=== PATIENT | male | born 1970 | race African-American/Black ===

== ENCOUNTER 2022-02-17 18:17 | Inpatient (IN) | payer BC ==
[2022-02-17] MEDS ORDERED: ONDANSETRON 4 MG TABLET PO ONE (19:10)
[2022-02-17] MEDS ORDERED: ACETAMINOPHEN 1000 MG/100 ML BAG IVPB ONE (19:15)
[2022-02-17] MEDS ORDERED: ONDANSETRON 4 MG/2 ML VIAL IVPB ONE (19:16)
[2022-02-17] MEDS ORDERED: ACETAMINOPHEN INJECTION 100 ML IVPB ONE (19:19)
[2022-02-17] MEDS ORDERED: ONDANSETRON 4 MG/2 ML VIAL ONE (19:19)
[2022-02-17] MEDS ORDERED: ONDANSETRON 4 MG/2 ML VIAL IVPUSH ONE (19:19)
[2022-02-17 20:59] LABS: HEMATOCRIT 39.1 % (35.4-49); HEMOGLOBIN 13.2 GM/dL (11.7-16.9); MCH 30.9 pg (25.7-33.7); MCHC 33.8 g/dl (32.0-35.9); MEAN CELL VOLUME 91.4 fl (80-96); MEAN PLT VOLUME 9.3 fl (7.5-11.1); PLATELET COUNT 287 10^3/uL (134-434); RBC 4.28 M/mm3 (4.00-5.60); RDW 14.8 % (11.9-15.9); WHITE BLOOD COUNT 5.6 K/mm3 (4.0-10.0)
[2022-02-17 21:18] LABS: CALCIUM 9.5 mg/dL (8.5-10.1)
[2022-02-17 21:19] LABS: BLOOD UREA NITROGEN 39.5 mg/dL (7-18)
[2022-02-17 21:21] LABS: CREATININE 1.8 mg/dL (0.55-1.3)
[2022-02-17 21:23] LABS: BILIRUBIN,TOTAL 2.8 mg/dL (0.2-1); TOT PROT 9.1 g/dl (6.4-8.2)
[2022-02-17] MEDS ORDERED: SODIUM CHLORIDE 0.9% 500 ML INFUS.BAG IV ONE (21:23)
[2022-02-18] MEDS ORDERED: PANTOPRAZOLE SODIUM 40 MG VIAL IVPUSH ONE (02:15)
[2022-02-18] MEDS ORDERED: FOLIC ACID 1 MG TABLET (FP) PO ONE (02:16)
[2022-02-18] MEDS ORDERED: PANTOPRAZOLE SODIUM 40 MG/100 ML BAG IVPB ONE (02:23)
[2022-02-18 02:42] LABS: INR 1.96 (0.83-1.09); PROTHROMBIN TIME (PATIENT) 22.7 SEC (9.7-13.0)
[2022-02-18 02:45] LABS: ACTIVATED PTT 32.1 SECONDS (25.2-36.5)
[2022-02-18 03:38] LABS: BILIRUBIN,DIRECT 1.2 mg/dL (0.0-0.2)
[2022-02-18 03:40] LABS: BILIRUBIN,TOTAL 2.1 mg/dL (0.2-1)
[2022-02-18 04:32] VITALS: BMI 19.5
[2022-02-18] MEDS: LORazepam 2 MG/ML SDV VIAL IVPUSH SCH ×4 (05:30→23:52)
[2022-02-18 11:28] LABS: ARTERIAL BLD GAS O2 SATURATION 95.6 % (95-98); ARTERIAL BLOOD GAS BASE EXCESS -5.4 mmol/L (-2-2); ARTERIAL BLOOD GAS PO2 72.2 mmHg (80-100); ARTERIAL BLOOD GAS pH 7.463 (7.350-7.450)
[2022-02-18 11:30] LABS: ALLENS TEST POSITIVE
[2022-02-18] MEDS: ENOXAPARIN NA (PORCINE) 40 MG/0.4 ML DISP.SYRIN SQ SCH (11:37)
[2022-02-18] MEDS: THIAMINE HCL 200 MG/2 ML VIAL IVPB SCH (11:37)
[2022-02-18] MEDS: DEXTROSE 5%-NORMAL SALINE 1,000 ML IV SCH ×2 (11:51→23:50)
[2022-02-18] MEDS ORDERED: PHYTONADIONE 10 MG/1 ML AMP IVPB ONE (15:01)
[2022-02-18] MEDS ORDERED: LORazepam 1 MG TABLET PO PRN (23:25)
[2022-02-19 01:59] LABS: PH,URINE 5.5 (5.0-8.0); URINE APPEARANCE CLEAR; URINE BILIRUBIN NEGATIVE (NEGATIVE); URINE COLOR DK YELLOW; URINE GLUCOSE (UA) NEGATIVE (NEGATIVE); URINE KETONE NEGATIVE (NEGATIVE); URINE LEUK ESTERASE NEGATIVE (NEGATIVE); URINE NITRITE NEGATIVE (NEGATIVE); URINE PROTEIN TRACE (NEGATIVE)
[2022-02-19] MEDS ORDERED: LORazepam 2 MG/ML SDV VIAL IVPUSH SCH (04:00)
[2022-02-19] MEDS: LORazepam 1 MG TABLET PO SCH ×4 (06:01→22:27)
[2022-02-19 09:26] LABS: BASO % 0.6 % (0-2.0); EOS % 0.2 % (0-4.5); HEMOGLOBIN 11.6 GM/dL (11.7-16.9); LYMPH % 25.4 % (8-40); MCH 30.1 pg (25.7-33.7); MCHC 33.1 g/dl (32.0-35.9); MEAN CELL VOLUME 90.9 fl (80-96); MEAN PLT VOLUME 9.1 fl (7.5-11.1); MONO % 13.2 % (3.8-10.2); NEUT % 60.6 % (42.8-82.8); PLATELET COUNT 250 10^3/uL (134-434); RBC 3.85 M/mm3 (4.00-5.60); RDW 15.2 % (11.9-15.9)
[2022-02-19 09:33] LABS: INR 2.25 (0.83-1.09); PROTHROMBIN TIME (PATIENT) 26.1 SEC (9.7-13.0)
[2022-02-19 09:49] LABS: BLOOD UREA NITROGEN 32.1 mg/dL (7-18)
[2022-02-19 09:53] LABS: CREATININE 1.4 mg/dL (0.55-1.3)
[2022-02-19 09:54] LABS: BILIRUBIN,TOTAL 1.7 mg/dL (0.2-1)
[2022-02-19 10:04] LABS: ALBUMIN 2.8 g/dl (3.4-5.0); TOT PROT 6.8 g/dl (6.4-8.2)
[2022-02-19] MEDS: ENOXAPARIN NA (PORCINE) 40 MG/0.4 ML DISP.SYRIN SQ SCH (10:45)
[2022-02-19] MEDS: THIAMINE HCL 200 MG/2 ML VIAL IVPB SCH (10:46)
[2022-02-19] MEDS: PANTOPRAZOLE SODIUM 40 MG VIAL IVPUSH SCH (10:54)
[2022-02-19] MEDS: LACTULOSE 20 GM/30 ML UDC (FOR ORAL USE ONLY) PO SCH ×4 (13:17→22:27)
[2022-02-19 13:24] LABS: CHLORIDE 105 mmol/L (98-107); SODIUM 136 mmol/L (136-145)
[2022-02-19 13:26] LABS: CALCIUM 8.4 mg/dL (8.5-10.1)
[2022-02-19 13:27] LABS: ALBUMIN 3.2 g/dl (3.4-5.0); ANION GAP 15 MMOL/L (8-16); BLOOD UREA NITROGEN 40.4 mg/dL (7-18); CO2 16 mmol/L (21-32); GLUCOSE,RANDOM 83 mg/dL (74-106)
[2022-02-19 13:30] LABS: CREATININE 1.7 mg/dL (0.55-1.3); SGOT/AST 108 U/L (15-37); SGPT/ALT 80 U/L (13-61)
[2022-02-19 13:32] LABS: TOT PROT 7.5 g/dl (6.4-8.2)
[2022-02-19 13:51] LABS: ALK PHOS 375 U/L (45-117)
[2022-02-19] MEDS: DEXTROSE 5%-NORMAL SALINE 1,000 ML IV SCH (18:08)
[2022-02-20] MEDS ORDERED: LORazepam 0.5 MG TABLET PO PRN
[2022-02-20] MEDS ORDERED: LORazepam 2 MG/ML SDV VIAL IVPUSH SCH (04:00)
[2022-02-20] MEDS: LORazepam 0.5 MG TABLET PO SCH ×5 (05:31→23:33)
[2022-02-20] MEDS: LACTULOSE 20 GM/30 ML UDC (FOR ORAL USE ONLY) PO SCH ×3 (05:36→21:48)
[2022-02-20] MEDS: PANTOPRAZOLE SODIUM 40 MG VIAL IVPUSH SCH (09:21)
[2022-02-20] MEDS: THIAMINE HCL 200 MG/2 ML VIAL IVPB SCH (09:21)
[2022-02-20] MEDS: ENOXAPARIN NA (PORCINE) 40 MG/0.4 ML DISP.SYRIN SQ SCH (10:29)
[2022-02-20] MEDS ORDERED: PHYTONADIONE 10 MG/1 ML AMP IVPB ONE (11:09)
[2022-02-20 16:26] LABS: INR 1.67 (0.83-1.09); PROTHROMBIN TIME (PATIENT) 19.3 SEC (9.7-13.0)
[2022-02-20 16:27] LABS: BASO % 0.4 % (0-2.0); EOS % 0.9 % (0-4.5); HEMATOCRIT 35.5 % (35.4-49); HEMOGLOBIN 11.8 GM/dL (11.7-16.9); LYMPH % 16.8 % (8-40); MCH 30.5 pg (25.7-33.7); MCHC 33.2 g/dl (32.0-35.9); MEAN CELL VOLUME 91.8 fl (80-96); MONO % 12.5 % (3.8-10.2); NEUT % 69.4 % (42.8-82.8); PLATELET COUNT 248 10^3/uL (134-434); RBC 3.86 M/mm3 (4.00-5.60); RDW 15.7 % (11.9-15.9); WHITE BLOOD COUNT 6.3 K/mm3 (4.0-10.0)
[2022-02-20 16:50] LABS: ALBUMIN 2.8 g/dl (3.4-5.0); CALCIUM 7.9 mg/dL (8.5-10.1)
[2022-02-20 16:51] LABS: BLOOD UREA NITROGEN 19.1 mg/dL (7-18)
[2022-02-20 16:53] LABS: BILIRUBIN,DIRECT 0.9 mg/dL (0.0-0.2)
[2022-02-20 16:55] LABS: BILIRUBIN,TOTAL 1.3 mg/dL (0.2-1); TOT PROT 7.1 g/dl (6.4-8.2)
[2022-02-20 21:06] LABS: GLIADIN ANTIBODY IGA 7 units (0-19); GLIADIN ANTIBODY IGG 3 units (0-19); TRANSGLUTAMINASE IGG 7 U/mL (0-5)
[2022-02-21] MEDS ORDERED: LORazepam 0.5 MG TABLET PO ONE (05:00)
[2022-02-21] MEDS: LACTULOSE 20 GM/30 ML UDC (FOR ORAL USE ONLY) PO SCH ×3 (06:23→21:39)
[2022-02-21 07:28] LABS: OPIATES, URI NEGATIVE (NEGATIVE)
[2022-02-21 07:29] LABS: METHADONE, UR NEGATIVE (NEGATIVE); PHENCYCLIDINE,URINE NEGATIVE (NEGATIVE); URINE AMPHETAMINES NEGATIVE (NEGATIVE); URINE BARBITURATES NEGATIVE (NEGATIVE); URINE BENZODIAZEPINES NEGATIVE (NEGATIVE)
[2022-02-21 07:30] LABS: COCAINE, UR POSITIVE (NEGATIVE)
[2022-02-21 09:32] LABS: BLOOD UREA NITROGEN 17.1 mg/dL (7-18)
[2022-02-21 09:33] LABS: CALCIUM 8.3 mg/dL (8.5-10.1)
[2022-02-21 09:35] LABS: CREATININE 1.1 mg/dL (0.55-1.3)
[2022-02-21] MEDS: PANTOPRAZOLE SODIUM 40 MG VIAL IVPUSH SCH (10:23)
[2022-02-21 10:31] LABS: BASO % 0.7 % (0-2.0); EOS % 1.4 % (0-4.5); HEMATOCRIT 37.5 % (35.4-49); HEMOGLOBIN 12.4 GM/dL (11.7-16.9); LYMPH % 21.5 % (8-40); MCH 30.4 pg (25.7-33.7); MEAN CELL VOLUME 92.2 fl (80-96); MEAN PLT VOLUME 8.8 fl (7.5-11.1); MONO % 10.5 % (3.8-10.2); NEUT % 65.9 % (42.8-82.8); PLATELET COUNT 266 10^3/uL (134-434); RBC 4.07 M/mm3 (4.00-5.60); RDW 15.9 % (11.9-15.9); WHITE BLOOD COUNT 7.3 K/mm3 (4.0-10.0)
[2022-02-21 10:50] LABS: BILIRUBIN,DIRECT 0.9 mg/dL (0.0-0.2)
[2022-02-21 10:51] LABS: TOT PROT 7.9 g/dl (6.4-8.2)
[2022-02-21 10:53] LABS: BILIRUBIN,TOTAL 1.2 mg/dL (0.2-1)
[2022-02-21 15:15] LABS: INR 1.39 (0.83-1.09)
[2022-02-21 17:18] LABS: BF WBC & OTHER NUCLEATED CELLS 306 /mm3
[2022-02-21 18:25] LABS: BODY FLUID MESOTHELIAL 80 %
[2022-02-21 18:26] LABS: BODY FLUID MONOCYTE 10 %
[2022-02-21] MEDS: MELATONIN 5 MG TABLETS PO PRN (21:39)
[2022-02-22] MEDS: LACTULOSE 20 GM/30 ML UDC (FOR ORAL USE ONLY) PO SCH ×2 (05:54→21:27)
[2022-02-22 08:42] LABS: BASO % 1.8 % (0-2.0); EOS % 0.7 % (0-4.5); HEMATOCRIT 38.5 % (35.4-49); HEMOGLOBIN 12.6 GM/dL (11.7-16.9); LYMPH % 24.1 % (8-40); MCH 30.2 pg (25.7-33.7); MCHC 32.6 g/dl (32.0-35.9); MEAN CELL VOLUME 92.5 fl (80-96); MEAN PLT VOLUME 9.1 fl (7.5-11.1); MONO % 10.3 % (3.8-10.2); NEUT % 63.1 % (42.8-82.8); PLATELET COUNT 240 10^3/uL (134-434); RBC 4.16 M/mm3 (4.00-5.60); RDW 15.6 % (11.9-15.9); WHITE BLOOD COUNT 7.9 K/mm3 (4.0-10.0)
[2022-02-22] MEDS: SPIRONOLACTONE 25 MG TABLET PO SCH (09:26)
[2022-02-22 09:27] LABS: ALBUMIN 2.9 g/dl (3.4-5.0); CALCIUM 8.6 mg/dL (8.5-10.1)
[2022-02-22] MEDS: ASPIRIN 81 MG CHEWABLE TABLETS PO SCH (09:27)
[2022-02-22] MEDS: ISOSORBIDE MONONITRATE 30 MG TAB.SR.24H (FP) PO SCH (09:27)
[2022-02-22] MEDS: FUROSEMIDE 40 MG TABLET (FP) PO SCH (09:27)
[2022-02-22] MEDS: SACUBITRIL/VALSARTAN 24 MG-26 MG TABLET PO SCH ×2 (09:27→21:27)
[2022-02-22] MEDS: PANTOPRAZOLE SODIUM 40 MG VIAL IVPUSH SCH ×2 (09:27→10:56)
[2022-02-22] MEDS: FERROUS SO4 325 MG TABLET (FP) PO SCH (09:27)
[2022-02-22 09:28] LABS: MAGNESIUM 2.1 mg/dL (1.8-2.4)
[2022-02-22 09:30] LABS: CREATININE 1.1 mg/dL (0.55-1.3); PHOSPHOROUS 3.4 mg/dL (2.5-4.9)
[2022-02-22 09:31] LABS: BILIRUBIN,TOTAL 1.6 mg/dL (0.2-1); TOT PROT 7.2 g/dl (6.4-8.2)
[2022-02-22] MEDS ORDERED: CARVEDILOL 3.125 MG TABLET (FP) PO SCH (10:00)
[2022-02-22] MEDS: PANTOPRAZOLE 40 MG TABLET PO SCH (12:01)
[2022-02-22] MEDS ORDERED: guaiFENesin 200 MG/10 ML 10 ML UNIT-DOSE CUPS PO ONE ×2 (13:32→23:52)
[2022-02-22] MEDS: ATORVASTATIN CA 40 MG TABLET (FP) PO SCH (21:27)
[2022-02-23] MEDS: LACTULOSE 20 GM/30 ML UDC (FOR ORAL USE ONLY) PO SCH ×3 (10:58→22:18)
[2022-02-23] MEDS: SACUBITRIL/VALSARTAN 24 MG-26 MG TABLET PO SCH ×2 (10:59→22:18)
[2022-02-23] MEDS: SPIRONOLACTONE 25 MG TABLET PO SCH (10:59)
[2022-02-23] MEDS: ISOSORBIDE MONONITRATE 30 MG TAB.SR.24H (FP) PO SCH (11:00)
[2022-02-23] MEDS: ASPIRIN 81 MG CHEWABLE TABLETS PO SCH (11:00)
[2022-02-23] MEDS: FERROUS SO4 325 MG TABLET (FP) PO SCH (11:01)
[2022-02-23] MEDS: PANTOPRAZOLE 40 MG TABLET PO SCH (11:01)
[2022-02-23] MEDS: FUROSEMIDE 40 MG TABLET (FP) PO SCH (11:01)
[2022-02-23 11:46] LABS: BASO % 0.8 % (0-2.0); EOS % 0.9 % (0-4.5); HEMATOCRIT 37.9 % (35.4-49); HEMOGLOBIN 12.2 GM/dL (11.7-16.9); LYMPH % 17.4 % (8-40); MCH 29.9 pg (25.7-33.7); MCHC 32.1 g/dl (32.0-35.9); MEAN CELL VOLUME 93.2 fl (80-96); MEAN PLT VOLUME 8.9 fl (7.5-11.1); MONO % 7.8 % (3.8-10.2); NEUT % 73.1 % (42.8-82.8); PLATELET COUNT 322 10^3/uL (134-434); RBC 4.06 M/mm3 (4.00-5.60); RDW 15.8 % (11.9-15.9); WHITE BLOOD COUNT 8.3 K/mm3 (4.0-10.0)
[2022-02-23 11:47] LABS: INR 1.46 (0.83-1.09); PROTHROMBIN TIME (PATIENT) 16.8 SEC (9.7-13.0)
[2022-02-23 12:10] LABS: ALBUMIN 2.5 g/dl (3.4-5.0); BLOOD UREA NITROGEN 21.4 mg/dL (7-18); MAGNESIUM 1.8 mg/dL (1.8-2.4)
[2022-02-23 12:13] LABS: CREATININE 1.1 mg/dL (0.55-1.3); PHOSPHOROUS 2.4 mg/dL (2.5-4.9)
[2022-02-23 12:15] LABS: BILIRUBIN,TOTAL 1.2 mg/dL (0.2-1); TOT PROT 6.5 g/dl (6.4-8.2)
[2022-02-23 16:08] LABS: BODY FLUID ALBUMIN 1.5 g/dL (Not Estab.)
[2022-02-23] MEDS ORDERED: BENZOCAINE 20 % GEL TUBE MM PRN (16:32)
[2022-02-23] MEDS: BENZOCAINE 10 % GEL TUBE MM PRN ×2 (18:36→21:46)
[2022-02-23] MEDS: MELATONIN 5 MG TABLETS PO PRN (22:18)
[2022-02-23] MEDS: ATORVASTATIN CA 40 MG TABLET (FP) PO SCH (22:18)
[2022-02-24] MEDS: BENZOCAINE 10 % GEL TUBE MM PRN ×2 (04:00→23:16)
[2022-02-24] MEDS: LACTULOSE 20 GM/30 ML UDC (FOR ORAL USE ONLY) PO SCH ×3 (10:26→21:13)
[2022-02-24 10:31] VITALS: RESP 18
[2022-02-24] MEDS: ISOSORBIDE MONONITRATE 30 MG TAB.SR.24H (FP) PO SCH (10:32)
[2022-02-24] MEDS: PANTOPRAZOLE 40 MG TABLET PO SCH (10:32)
[2022-02-24] MEDS: FERROUS SO4 325 MG TABLET (FP) PO SCH (10:33)
[2022-02-24] MEDS: SPIRONOLACTONE 25 MG TABLET PO SCH (10:33)
[2022-02-24] MEDS: ASPIRIN 81 MG CHEWABLE TABLETS PO SCH (10:33)
[2022-02-24] MEDS: SACUBITRIL/VALSARTAN 24 MG-26 MG TABLET PO SCH ×2 (10:36→21:13)
[2022-02-24] MEDS: FUROSEMIDE 40 MG TABLET (FP) PO SCH (12:56)
[2022-02-24 12:57] LABS: BASO % 0.4 % (0-2.0); HEMOGLOBIN 12.1 GM/dL (11.7-16.9); LYMPH % 20.9 % (8-40); MCH 30.5 pg (25.7-33.7); MCHC 32.7 g/dl (32.0-35.9); MEAN CELL VOLUME 93.1 fl (80-96); MEAN PLT VOLUME 8.4 fl (7.5-11.1); MONO % 11.7 % (3.8-10.2); PLATELET COUNT 306 10^3/uL (134-434); RBC 3.97 M/mm3 (4.00-5.60); RDW 15.6 % (11.9-15.9); WHITE BLOOD COUNT 7.4 K/mm3 (4.0-10.0)
[2022-02-24 13:13] LABS: CALCIUM 8.4 mg/dL (8.5-10.1)
[2022-02-24 13:14] LABS: ALBUMIN 2.6 g/dl (3.4-5.0); BLOOD UREA NITROGEN 18.6 mg/dL (7-18); MAGNESIUM 1.7 mg/dL (1.8-2.4)
[2022-02-24 13:17] LABS: BILIRUBIN,TOTAL 1.2 mg/dL (0.2-1); PHOSPHOROUS 2.7 mg/dL (2.5-4.9); TOT PROT 6.9 g/dl (6.4-8.2)
[2022-02-24] MEDS ORDERED: MAGNESIUM OXIDE 400 MG TABLET (FP) PO ONE (14:00)
[2022-02-24] MEDS: ATORVASTATIN CA 40 MG TABLET (FP) PO SCH (21:13)
[2022-02-24] MEDS: MELATONIN 5 MG TABLETS PO PRN (21:15)
[2022-02-25] MEDS ORDERED: guaiFENesin 200 MG/10 ML 10 ML UNIT-DOSE CUPS PO PRN (07:55)
[2022-02-25 09:53] VITALS: TEMP 98.1
[2022-02-25] MEDS: ISOSORBIDE MONONITRATE 30 MG TAB.SR.24H (FP) PO SCH (09:53)
[2022-02-25] MEDS: PANTOPRAZOLE 40 MG TABLET PO SCH (09:53)
[2022-02-25] MEDS: LACTULOSE 20 GM/30 ML UDC (FOR ORAL USE ONLY) PO SCH (09:53)
[2022-02-25] MEDS: FERROUS SO4 325 MG TABLET (FP) PO SCH (09:54)
[2022-02-25] MEDS: SPIRONOLACTONE 25 MG TABLET PO SCH (09:54)
[2022-02-25] MEDS: ASPIRIN 81 MG CHEWABLE TABLETS PO SCH (09:54)
[2022-02-25] MEDS: SACUBITRIL/VALSARTAN 24 MG-26 MG TABLET PO SCH (09:55)
[2022-02-25 10:06] LABS: MAGNESIUM 1.6 mg/dL (1.8-2.4)
[2022-02-25 10:42] LABS: INR 1.35 (0.83-1.09); PROTHROMBIN TIME (PATIENT) 15.6 SEC (9.7-13.0)
[2022-02-25 10:45] LABS: PHOSPHOROUS 3.3 mg/dL (2.5-4.9)
[2022-02-25 11:04] LABS: ALBUMIN 2.7 g/dl (3.4-5.0); CALCIUM 8.6 mg/dL (8.5-10.1)
[2022-02-25 11:05] LABS: BLOOD UREA NITROGEN 21.4 mg/dL (7-18)
[2022-02-25 11:07] LABS: CREATININE 1.1 mg/dL (0.55-1.3)
[2022-02-25 11:09] LABS: BILIRUBIN,TOTAL 1.2 mg/dL (0.2-1)
[2022-02-25] MEDS ORDERED: MAGNESIUM 2GM/50ML STERILE WATER IVPB IVPB ONE (11:28)
[2022-02-25] MEDS: FUROSEMIDE 40 MG TABLET (FP) PO SCH (11:44)
[2022-02-25] MEDS ORDERED: MAGNESIUM OXIDE 400 MG TABLET (FP) PO ONE (12:49)
[2022-02-25 14:16] VITALS: BP 119/70; PULSE 106
== END 2022-02-25 14:39 | disposition home or self-care (01) | DRG 280 ==
LOC: JER 18:17 → JERBED 02-18 02:06 → J5S 02-18 03:51
PROVIDERS: ADMIT Internal Medicine; ATTEND Internal Medicine
PROC: 0W9G3ZZ Drainage of Peritoneal Cavity, Percutaneous Approach (ICD-10-PCS; principal; 2022-02-21)
PROC: BW40ZZZ Ultrasonography of Abdomen (ICD-10-PCS; 2022-02-21)
DX: K70.11 Alcoholic hepatitis with ascites (principal); D68.9 Coagulation defect, unspecified; B19.10 Unspecified viral hepatitis B without hepatic coma; F10.139 Alcohol abuse with withdrawal, unspecified; K76.1 Chronic passive congestion of liver; N17.9 Acute kidney failure, unspecified; F14.10 Cocaine abuse, uncomplicated; R79.89 Other specified abnormal findings of blood chemistry; I50.810 Right heart failure, unspecified; R59.0 Localized enlarged lymph nodes; K70.0 Alcoholic fatty liver; I27.20 Pulmonary hypertension, unspecified; I50.22 Chronic systolic (congestive) heart failure; I07.1 Rheumatic tricuspid insufficiency
CPT/HCPCS: 0241U-QW; 36415; 36600; 71045-TC-FY; 76705-TC; 76942-TC; 80048; 80053; 80061; 80076; 80307; 81003; 82042; 82105; 82140; 82150; 82247; 82248; 82465; 82728; 82784; 82803; 82945; 83036; 83516; 83540; 83550; 83615; 83690; 83735; 83880; 83986; 84100; 84157; 84443; 84478; 84484; 85025; 85027; 85610; 85730; 86038; 86704; 86705; 86803; 87070; 87075; 87086; 87102; 87116; 87205; 87206; 87210; 87340; 87517; 88108; 88305-TC; 93005; 93010; 93306-TC; 99285-25